=== PATIENT | female | born 1970 | race Asian ===

== ENCOUNTER 2017-06-28 08:15 | Emergency (ER) | payer OTHER ==
[~2017-06-28] VITALS: Ht 154.9 cm; Wt 108.9 kg
[~2017-06-28 08:15] MED LIST: ATEN50TA36 PO; LOVASTATIN20 MG OR
[2017-06-28 08:20] VITALS: BP 141/89; TEMP 98.3
== END 2017-06-28 09:04 | disposition home or self-care (01) ==
LOC: ED 08:15
DX: R51 Headache (principal); R68.83 Chills (without fever); R19.7 Diarrhea, unspecified
CPT/HCPCS: 99281

== ENCOUNTER 2018-02-26 21:46 | Emergency (ER) | payer OTHER ==
[~2018-02-26] VITALS: Ht 154.9 cm; Wt 122.9 kg
[2018-02-26 23:20] VITALS: BP 142/75; TEMP 98.1
== END 2018-02-26 23:22 | disposition home or self-care (01) ==
LOC: ED 21:46
DX: M54.5 Low back pain (principal); V59.59XA Passenger in pick-up truck or van injured in collision with other motor vehicles in traffic accident, initial encounter
CPT/HCPCS: 99283

== ENCOUNTER 2018-03-07 23:28 | Emergency (ER) | payer OTHER ==
[~2018-03-07] VITALS: Ht 154.9 cm; Wt 122.9 kg
[2018-03-07] MEDS ORDERED: ACID REDUCER150 M1 PO (23:52)
[2018-03-08 00:39] LABS: PLATELET COUNT 259 K/uL (152-353)
[2018-03-08 00:56] LABS: POTASSIUM 3.7 mmol/L (3.6-5.2)
[2018-03-08 01:55] VITALS: BP 128/78; TEMP 98.2
== END 2018-03-08 01:55 | disposition home or self-care (01) ==
LOC: ED 23:28
DX: J20.9 Acute bronchitis, unspecified (principal); I10 Essential (primary) hypertension
CPT/HCPCS: 36415; 74022; 80053; 81000; 83880; 84443; 84484; 85027; 93005; 99283

== ENCOUNTER → 2018-03-23 15:59 | Outpatient (CLI) | payer OTHER ==
[~2018-03-23 15:59] MED LIST changes: +ACID REDUCER150 M1 PO
== END | disposition home or self-care (01) ==
LOC: AMB 15:59
DX: Z04.1 Encounter for examination and observation following transport accident (principal)

== ENCOUNTER 2018-04-21 22:34 | Emergency (ER) | payer OTHER ==
[~2018-04-21] VITALS: Ht 154.9 cm; Wt 105.7 kg
[2018-04-21 22:51] VITALS: BP 169/98; TEMP 97.9
== END 2018-04-21 23:22 | disposition home or self-care (01) ==
LOC: ED 22:34
DX: J40 Bronchitis, not specified as acute or chronic (principal); K21.9 Gastro-esophageal reflux disease without esophagitis
CPT/HCPCS: 96372; 99283; J2930

== ENCOUNTER 2018-11-11 08:15 | Outpatient (CLI) | payer OTHER | END 2018-11-11 22:20 | disposition home or self-care (01) | LOC: MAMMO 08:15 | DX: Z12.31 Encounter for screening mammogram for malignant neoplasm of breast (principal) ==

== ENCOUNTER 2018-12-20 22:50 | Emergency (ER) | payer OTHER ==
[~2018-12-20] VITALS: Ht 154.9 cm; Wt 105.7 kg
[2018-12-20 23:54] VITALS: BP 148/88; TEMP 98.4
== END 2018-12-20 23:54 | disposition home or self-care (01) ==
LOC: ED 22:50
DX: R42 Dizziness and giddiness (principal); R51 Headache
CPT/HCPCS: 99283

== ENCOUNTER 2019-04-13 15:16 | Emergency (ER) | payer OTHER ==
[~2019-04-13] VITALS: Ht 154.9 cm; Wt 117.9 kg
[~2019-04-13 15:16] MED LIST changes: -LOVASTATIN20 MG OR; +LOVASTATIN20 MG PO
[2019-04-13 15:20] VITALS: TEMP 98.1
[2019-04-13] MEDS ORDERED: CLARITIN10 M1 PO (15:31)
[2019-04-13] MEDS ORDERED: MONT10TA PO (15:32)
[2019-04-13] MEDS ORDERED: MECLIZINE25 MG PO (15:32)
[2019-04-13] MEDS ORDERED: TYLENOL325 MG PO (15:33)
[2019-04-13 16:50] VITALS: BP 152/75
== END 2019-04-13 16:50 | disposition home or self-care (01) ==
LOC: ED 15:16
DX: S83.8X1A Sprain of other specified parts of right knee, initial encounter (principal); S80.01XA Contusion of right knee, initial encounter; W18.39XA Other fall on same level, initial encounter; Y92.89 Other specified places as the place of occurrence of the external cause
CPT/HCPCS: 99282

== ENCOUNTER 2019-06-20 09:26 | Outpatient (CLI) | payer OTHER ==
[~2019-06-20 09:26] MED LIST changes: +CLARITIN10 M1 PO; +MECLIZINE25 MG PO; +MONT10TA PO; +TYLENOL325 MG PO
== END 2019-06-20 20:10 | disposition home or self-care (01) ==
LOC: RAD 09:26
DX: J30.2 Other seasonal allergic rhinitis (principal)

== ENCOUNTER 2019-11-14 11:07 | Outpatient (CLI) | payer OTHER | END 2019-11-14 19:29 | disposition home or self-care (01) | LOC: MAMMO 11:07 | DX: Z12.31 Encounter for screening mammogram for malignant neoplasm of breast (principal) ==

== ENCOUNTER 2020-09-15 09:26 | Emergency (ER) | payer OTHER ==
[~2020-09-15] VITALS: Ht 154.9 cm; Wt 111.6 kg
[2020-09-15 09:40] VITALS: TEMP 97.1
[2020-09-15 10:46] VITALS: BP 142/80
== END 2020-09-15 10:47 | disposition home or self-care (01) ==
LOC: ED 09:26
DX: M25.512 Pain in left shoulder (principal); G89.29 Other chronic pain; M75.52 Bursitis of left shoulder; Z91.81 History of falling
CPT/HCPCS: 96372; 99283; J2360; J2930

== ENCOUNTER 2020-11-13 15:16 | Outpatient (CLI) | payer OTHER | END 2020-11-13 21:15 | disposition home or self-care (01) | LOC: INF 15:16 | PROVIDERS: ATTEND Internal Medicine | DX: Z23 Encounter for immunization (principal) | CPT/HCPCS: 96372 ==

== ENCOUNTER 2020-12-04 09:00 | Outpatient (CLI) | payer OTHER | END 2020-12-04 21:56 | disposition home or self-care (01) | LOC: MAMMO 09:00 | PROVIDERS: ATTEND Obstetrics & Gynecology | DX: Z12.31 Encounter for screening mammogram for malignant neoplasm of breast (principal); Z13.820 Encounter for screening for osteoporosis ==

== ENCOUNTER 2020-12-10 09:26 | Outpatient (CLI) | payer OTHER | END 2020-12-10 20:12 | disposition home or self-care (01) | LOC: INF 09:26 | PROVIDERS: ATTEND Internal Medicine | DX: Z23 Encounter for immunization (principal) | CPT/HCPCS: 96372 ==

== ENCOUNTER 2023-05-01 12:36 | Emergency (ER) | payer MEDICARE ==
[~2023-05-01] VITALS: Ht 154.9 cm; Wt 112.0 kg
[2023-05-01 13:10] VITALS: BP 149/77; TEMP 97.2
== END 2023-05-01 13:10 | disposition home or self-care (01) ==
LOC: ED 12:36
DX: J06.9 Acute upper respiratory infection, unspecified (principal); B34.9 Viral infection, unspecified
CPT/HCPCS: 87635; 99282; U0003

== ENCOUNTER 2023-10-12 17:52 | Outpatient (CLI) | payer OTHER ==
[2023-10-12 18:13] LABS: PLATELET COUNT 264 K/uL (152-353)
[2023-10-12 18:34] LABS: POTASSIUM 4.6 mmol/L (3.6-5.2); SODIUM 140 mmol/L (136-145)
== END 2023-10-12 19:32 | disposition home or self-care (01) ==
LOC: LABW 17:52
PROVIDERS: ATTEND Family Medicine
DX: N93.9 Abnormal uterine and vaginal bleeding, unspecified (principal); R10.9 Unspecified abdominal pain
CPT/HCPCS: 36415; 80053; 82728; 83540; 83550; 85027